=== PATIENT | female | born 1975 | race Caucasian/White ===

== ENCOUNTER 2017-02-12 18:40 | Observation (INO) | payer MEDICAID, OTHER ==
--- NOTE | 2017-02-12 19:16 | CPEKG ---
Heart Rate: 88 RR Interval: 682 P-R Interval: 220 QRSD Interval: 114 QT Interval: 420 QTC Interval: 509 P [place]: 45 QRS [place]: 91 T Wave [place]: -9 EKG Severity - ABNORMAL ECG - EKG Impression: SINUS RHYTHM EKG Impression: FIRST DEGREE AV BLOCK EKG Impression: NONSPECIFIC INTRAVENTRICULAR CONDUCTION DELAY Electronically Signed By: Cb Hernandez 12-Feb-2017 19:58:37
--- NOTE | 2017-02-12 19:41 | EDPHY ---
H & P Time Seen by Provider: 02/12/17 19:40 HPI/ROS: Chief complaint. Chest pain HPI. 41-year-old female who has been having chest pain off and on for 3 weeks. She has been using antacids with generally fairly good relief. Today however she has sharp left-sided chest pain that radiates to her left arm and notes her fingers are tingling. No radiation through to her back. Her discomfort is worse with breathing, position, exertion. She has also been vomiting the last 3 -4 days. She has been nauseated and somewhat dizzy. No fever cough. She does know she has gallstones but they have not really bothered her. Her pain is periumbilical and has been present for about 3 days. No unusual leg pain or swelling. Known factor 5 Leiden deficiency ROS Constitutional. no fever/chills, no weakness Eyes. no problems with vision ENT. no sore throat, no nasal drainage Cardiovascular. Chest pain Respiratory. no shortness of breath, no cough Abdominal. Abdominal pain with nausea and vomiting . no problems urinating MS. no calf pain/swelling, no neck/back pain, no joint pain Skin. no rash Lymph. no swollen glands Neuro. 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 ENT, Mouth: Mucous membranes are moist. Respiratory: There are no retractions, lungs are clear to auscultation. Cardiovascular: Regular rate and rhythm. Gastrointestinal: Abdomen is soft and nontender, no masses, bowel sounds normal. Neurological: Awake and alert, sensory and motor exams grossly normal. Skin: Warm and dry, no rashes. Musculoskeletal: Neck is supple nontender. Extremities symmetrical, full range of motion. Psychiatric: Patient is oriented X 3, there is no agitation. Constitutional: Initial Vital Signs Temperature (C) 36.6 C 02/12/17 18:53 Heart Rate 91 02/12/17 18:53 Respiratory Rate 18 02/12/17 18:53 Blood Pressure 121/74 H 02/12/17 18:53 O2 Sat (%) 92 08/09/17 18:53 O2 Delivery Mode Nasal Cannula O2 (L/minute) 2 Allergies/Adverse Reactions: surgical tape Allergy (Uncoded 02/12/17 18:52) Home Medications: Medication Instructions Recorded Aspirin 81mg 04/10/11 Pregabalin [Lyrica] 300 mg PO 04/10/11 Levothyroxine 02/12/17 Zoloft 50mg (*) 02/12/17 Medical Decision Making - Diagnostics EKG Interpretation: EKG interpreted by me shows normal sinus rhythm with first-degree AV block normal axis. Mild interventricular conduction delay. QRS is otherwise normal. No significant ST elevation or depression. No arrhythmia. The rate is 88 No old EKGs in our system for comparison Imaging Results: Imaging Impressions Chest/Thorax CTA 02/12/17 19:56 Impression: No evidence for pulmonary embolic disease. Normal study. Results called and discussed with MAHSA FOY, at 02/12/2017 21:14 General information for patients regarding this examination can be found at [email or web address]. If you have questions or comments about this report, please contact me at [phone] (hospital) or [phone] (cell). CT angiogram chest negative for pulmonary embolus Procedures: IV normal saline. Phenergan IV ED Course/Re-evaluation: Patient was somewhat nauseated after the Zofran. She is given IV Phenergan. Re-evaluation 9:55 p.m..--patient is stable. She and I reviewed imaging and lab results. We discussed treatment plan including recommendation for follow- up. Patient tells me that she knows something is wrong. She continues to have chest discomfort radiating to her arm. She and I agreed most cautious and conservative course is to admit her overnight to the hospital. I consulted Dr. Ferrer, hospitalist, who agrees to the admission Differential Diagnosis: I considered acute coronary syndrome, electrolyte abnormality, pulmonary embolus , pneumonia, musculoskeletal and anxiety as well - Data Points Laboratory Results: Laboratory Results 02/12/17 19:33 02/12/17 19:33 02/12/17 02/12/17 02/12/17 19:33 19:33 19:33 WBC 7.10 10^3/uL 10^3/uL (3.80-9.50) RBC 4.97 10^6/uL 10^6/uL (4.18-5.33) Hgb 14.9 g/dL g/dL (12.6-16.3) Hct 44.8 % % (38.0-47.0) MCV 90.1 fL fL (81.5-99.8) MCH 30.0 pg pg (27.9-34.1) MCHC 33.3 g/dL g/dL (32.4-36.7) RDW 13.7 % % (11.5-15.2) Plt Count 237 10^3/uL 10^3/uL (150-400) MPV 10.8 fL fL (8.7-11.7) Neut % (Auto) 47.7 % % (39.3-74.2) Lymph % (Auto) 42.5 % % (15.0-45.0) [place] % (Auto) 7.6 % % (4.5-13.0) Eos % (Auto) 1.7 % % (0.6-7.6) Baso % (Auto) 0.4 % % (0.3-1.7) Nucleat RBC Rel Count 0.0 % % (0.0-0.2) Absolute Neuts (auto) 3.38 10^3/uL 10^3/uL (1.70-6.50) Absolute Lymphs (auto) 3.02 10^3/uL H 10^3/uL (1.00-3.00) Absolute Monos (auto) 0.54 10^3/uL 10^3/uL (0.30-0.80) Absolute Eos (auto) 0.12 10^3/uL 10^3/uL (0.03-0.40) Absolute Basos (auto) 0.03 10^3/uL 10^3/uL (0.02-0.10) Absolute Nucleated RBC 0.00 10^3/uL 10^3/uL (0-0.01) Immature Gran % 0.1 % % (0.0-1.1) Immature Gran # 0.01 10^3/uL 10^3/uL (0.00-0.10) D-Dimer < 0.27 ug/mLFEU ug/mLFEU (0.00-0.50) Sodium 140 mEq/L mEq/L (134-144) Potassium 4.0 mEq/L mEq/L (3.5-5.2) Chloride 99 mEq/L mEq/L (97-110) Carbon Dioxide 28 mEq/l mEq/l (22-31) Anion Gap 13 mEq/L mEq/L (8-16) BUN 12 mg/dL mg/dL (7-23) Creatinine 0.9 mg/dL mg/dL (0.6-1.0) Estimated GFR > 60 Glucose 108 mg/dL H mg/dL (70-100) Calcium 9.4 mg/dL mg/dL (8.5-10.4) Total Bilirubin 0.5 mg/dL mg/dL (0.1-1.4) Conjugated Bilirubin 0.4 mg/dL mg/dL (0.0-0.5) Unconjugated Bilirubin 0.1 mg/dL mg/dL (0.0-1.1) AST 29 IU/L IU/L (14-46) ALT 27 IU/L IU/L (9-52) Alkaline Phosphatase 65 IU/L IU/L (38-126) Troponin I < 0.012 ng/mL ng/mL (0-0.034) Total Protein 6.6 g/dL g/dL (6.3-8.2) Albumin 4.1 g/dL g/dL (3.5-5.0) Lipase 63.0 IU/L IU/L (23-300) Medications Given: Lorazepam (Ativan Injection) 1 mg IVP Q4HRS PRN PRN Reason: Anxiety, Unable to Take PO Stop: 08/11/17 23:02 Last Admin: 02/12/17 23:37 Dose: 1 mg Discontinued Medications Sodium Chloride (Ns) 1,000 mls @ 0 mls/hr IV ONCE ONE; Wide Open PRN Reason: Protocol Stop: 02/12/17 19:57 Last Admin: 02/12/17 20:09 Dose: 1,000 mls Ondansetron HCl (Zofran) 4 mg IVP EDNOW ONE Stop: 02/12/17 19:57 Last Admin: 02/12/17 20:10 Dose: 4 mg Promethazine HCl (Phenergan) 12.5 mg IVP EDNOW ONE Stop: 08/09/17 21:15 Last Admin: 02/12/17 21:21 Dose: 12.5 mg Departure - Departure Disposition: [facility] Inpatient Acute Clinical Impression: Chest pain Qualifiers: Chest pain type: unspecified Qualified Code(s): R07.9 - Chest pain, unspecified Condition: Good
[2017-02-12] MEDS ORDERED: ONDANSETRON 4 MG/2 ML VIAL IVP ONE (19:56)
[2017-02-12] MEDS ORDERED: NS 1,000 ML IV ONE (19:56)
[2017-02-12 20:06] LABS: % IMMATURE GRANULYOCYTES 0.1 % (0.0-1.1); ABSOLUTE IMMATURE GRANULOCYTES 0.01 10^3/uL (0.00-0.10); ADD DIFF? NO; ADD MORPH? NO; ADD SCAN? NO; ATYPICAL LYMPHOCYTE FLAG 10 (0-99); FRAGMENT RBC FLAG 0 (0-99); HEMATOCRIT 44.8 % (38.0-47.0); HEMOGLOBIN 14.9 g/dL (12.6-16.3); LEFT SHIFT FLG 0 (0-99); LIPEMIA HEMOLYSIS FLAG 80 (0-99); MEAN CELL HEMOGLOBIN CONCENTR. 33.3 g/dL (32.4-36.7); MEAN CELL VOLUME 90.1 fL (81.5-99.8); MEAN PLATELET VOLUME 10.8 fL (8.7-11.7); PLATELET CLUMPS FLAG 0 (0-99); PLATELET COUNT 237 10^3/uL (150-400); RED BLOOD CELL COUNT 4.97 10^6/uL (4.18-5.33); RED CELL DISTRIBUTION WIDTH 13.7 % (11.5-15.2)
[2017-02-12 20:10] LABS: ALANINE AMINOTRANSFERASE 27 IU/L (9-52); ALBUMIN 4.1 g/dL (3.5-5.0); ALKALINE PHOSPHATASE 65 IU/L (38-126); ANION GAP 13 mEq/L (8-16); ASPARTATE AMINOTRANSFERASE 29 IU/L (14-46); BILIRUBIN,TOTAL 0.5 mg/dL (0.1-1.4); BILIRUBIN-CONJUGATED 0.4 mg/dL (0.0-0.5); BILIRUBIN-UNCONJUGATED 0.1 mg/dL (0.0-1.1); CALCIUM 9.4 mg/dL (8.5-10.4); CARBON DIOXIDE 28 mEq/l (22-31); CHLORIDE 99 mEq/L (97-110); CREATININE 0.9 mg/dL (0.6-1.0); GLOMERULAR FILTRATION RATE > 60; GLUCOSE 108 mg/dL (70-100); SODIUM 140 mEq/L (134-144); TOTAL PROTEIN 6.6 g/dL (6.3-8.2)
[2017-02-12] MEDS ORDERED: IOPAMIDOL (ISOVUE 370) 100 ML BTL IV ONE (20:12)
[2017-02-12 20:20] LABS: TROPONIN I < 0.012 ng/mL (0-0.034)
[2017-02-12] MEDS ORDERED: PROMETHAZINE HCL 25 MG/ML INJ IVP ONE (21:14)
[2017-02-12] MEDS ORDERED: ONDANSETRON DISINTEGRATING 4 MG TAB PO PRN (22:06)
[2017-02-12] MEDS ORDERED: ACETAMINOPHEN 325 MG TAB PO PRN (22:06)
[2017-02-12] MEDS ORDERED: ONDANSETRON 4 MG/2 ML VIAL IVP PRN (22:06)
[2017-02-12] MEDS ORDERED: oxyCODONE IR 5 MG TAB PO PRN (22:06)
[2017-02-12 23:04] VITALS: RESP 16
[2017-02-12] MEDS ORDERED: diphenhydrAMINE 25 MG CAP PO PRN (23:04)
[2017-02-12] MEDS: LORazepam 2 MG/ML INJ IVP PRN (23:37)
--- NOTE | 2017-02-12 23:52 | PDGENHP ---
History and Physical - Chief Complaint Chest pain - History of Present Illness 41 yo F with hx of stroke in her 20s, ?FVL, and chronic pain presents with chest pain. She relates several months of intermittent left-sided chest pain that worsened on the night prior to presentation. She describes the pain as sharp, 8/10 at its worst, involves left arm, and last several minutes before abating. She has also noted significant nausea since last night but denies SOB and diaphoresis. She could not think of anything that made the pain better, including antacids. Any movement at all makes the pain worse. During my evaluation patient was mostly complaining of significant nausea and seemed rather irritated by my evaluation. History Information - Allergies/Home Medication List Allergies/Adverse Reactions: surgical tape Allergy (Uncoded 02/12/17 18:52) Home Medications: Aspirin 81mg 04/10/11 [Last Taken Unknown] Pregabalin [Lyrica] 300 mg PO 04/10/11 [Last Taken Unknown] Levothyroxine 02/12/17 [Last Taken Unknown] Zoloft 50mg (*) 02/12/17 [Last Taken Unknown] I have personally reviewed and updated: family history, medical history - Past Medical History CVA Additional medical history: ?FVL - Family History Positive for: vascular disease, CAD - Social History Smoking Status: Former smoker (20 pack year hx) Alcohol Use: None Drug Use: None Review of Systems ROS: 10pt was reviewed & negative except for what was stated in HPI & below Physical Exam Temp Pulse Resp BP Pulse Ox 36.7 C 83 16 141/89 H 97 02/12/17 23:01 02/12/17 23:01 02/12/17 23:01 02/12/17 23:01 02/12/17 23:01 O2 (L/minute) 3 Constitutional: appears nourished, uncomfortable Eyes: PERRL, EOMI Ears, Nose, Mouth, Throat: moist mucous membranes, no oral mucosal ulcers Cardiovascular: regular rate and rhythym, systolic murmur (2/6 @ left sternal border), other (Pain somewhat reproducible on palpation) Respiratory: no respiratory distress, clear to auscultation Gastrointestinal: normoactive bowel sounds, soft, non-tender abdomen Skin: warm, no rashes or abrasions Musculoskeletal: full muscle strength, no muscle tenderness Neurologic: AAOx3, CN II-XII Intact Psychiatric: interacting appropriately, anxious Lab Data & Imaging Review 02/12/17 19:33 02/12/17 19:33 WBC 7.10 10^3/uL (3.80-9.50) 02/12/17 19:33 RBC 4.97 10^6/uL (4.18-5.33) 02/12/17 19:33 Hgb 14.9 g/dL (12.6-16.3) 02/12/17 19:33 Hct 44.8 % (38.0-47.0) 02/12/17 19:33 MCV 90.1 fL (81.5-99.8) 02/12/17 19:33 MCH 30.0 pg (27.9-34.1) 02/12/17 19:33 MCHC 33.3 g/dL (32.4-36.7) 02/12/17 19:33 RDW 13.7 % (11.5-15.2) 02/12/17 19:33 Plt Count 237 10^3/uL (150-400) 02/12/17 19:33 MPV 10.8 fL (8.7-11.7) 02/12/17 19:33 Neut % (Auto) 47.7 % (39.3-74.2) 02/12/17 19:33 Lymph % (Auto) 42.5 % (15.0-45.0) 02/12/17 19:33 [place] % (Auto) 7.6 % (4.5-13.0) 02/12/17 19:33 Eos % (Auto) 1.7 % (0.6-7.6) 02/12/17 19:33 Baso % (Auto) 0.4 % (0.3-1.7) 02/12/17 19:33 Nucleat RBC Rel Count 0.0 % (0.0-0.2) 02/12/17 19:33 Absolute Neuts (auto) 3.38 10^3/uL (1.70-6.50) 02/12/17 19:33 Absolute Lymphs (auto) 3.02 10^3/uL (1.00-3.00) H 02/12/17 19:33 Absolute Monos (auto) 0.54 10^3/uL (0.30-0.80) 02/12/17 19:33 Absolute Eos (auto) 0.12 10^3/uL (0.03-0.40) 02/12/17 19:33 Absolute Basos (auto) 0.03 10^3/uL (0.02-0.10) 02/12/17 19:33 Absolute Nucleated RBC 0.00 10^3/uL (0-0.01) 02/12/17 19:33 Immature Gran % 0.1 % (0.0-1.1) 02/12/17 19:33 Immature Gran # 0.01 10^3/uL (0.00-0.10) 02/12/17 19:33 D-Dimer < 0.27 ug/mLFEU (0.00-0.50) 02/12/17 19:33 Sodium 140 mEq/L (134-144) 02/12/17 19:33 Potassium 4.0 mEq/L (3.5-5.2) 02/12/17 19:33 Chloride 99 mEq/L (97-110) 02/12/17 19:33 Carbon Dioxide 28 mEq/l (22-31) 02/12/17 19:33 Anion Gap 13 mEq/L (8-16) 02/12/17 19:33 BUN 12 mg/dL (7-23) 02/12/17 19:33 Creatinine 0.9 mg/dL (0.6-1.0) 02/12/17 19:33 Estimated GFR > 60 02/12/17 19:33 Glucose 108 mg/dL (70-100) H 02/12/17 19:33 Calcium 9.4 mg/dL (8.5-10.4) 02/12/17 19:33 Total Bilirubin 0.5 mg/dL (0.1-1.4) 02/12/17 19:33 Conjugated Bilirubin 0.4 mg/dL (0.0-0.5) 02/12/17 19:33 Unconjugated Bilirubin 0.1 mg/dL (0.0-1.1) 02/12/17 19:33 AST 29 IU/L (14-46) 02/12/17 19:33 ALT 27 IU/L (9-52) 02/12/17 19:33 Alkaline Phosphatase 65 IU/L (38-126) 02/12/17 19:33 Troponin I < 0.012 ng/mL (0-0.034) 02/12/17 19:33 Total Protein 6.6 g/dL (6.3-8.2) 02/12/17 19:33 Albumin 4.1 g/dL (3.5-5.0) 02/12/17 19:33 Lipase 63.0 IU/L (23-300) 02/12/17 19:33 Imaging Review: CTPE without PE or other intrathoracic abnormalities. Visualized and Interpreted EKG results: Yes EKG additional interpertation: NSR, TWI in III and AVF with no prior tracing for comparison Assessment & Plan Assessment: 41 yo F w/ hx of stroke and ?FVL presenting with atypical chest pain and nausea. Plan: 1. Atypical chest pain - Present for months, very localized, and somewhat reproducible on palpation. Patient does report hx of stroke, 20 pack year smoking hx, family hx of CAD, and have TWI's inferiorly on ECG, so does have risk factors for early cardiovascular disease. Despite this, my suspicion for ACS currently is very low. CTPE performed in ED negative for PE or any other intrathoracic abnormality. Initial troponin negative; D-dimer WNL. - Continue to trend enzymes 2. Nausea - This seems to be patient's chief concern at this point. Possibly viral gastroenteritis although no diarrhea and LFTs WNL. - IVF, anti-emetics PRN - Consider PPI if not resolving 3. Hx of stroke and ?FVL - With no clear residual deficits. Patient on daily aspirin. 4. Chronic pain - Patient reports this is related to hx of stroke. Takes Lyrica daily. Diet - NPO @ MN in case she needs risk stratification Code - Full Ppx - LMWH Dispo - Admit to observation
[2017-02-13] MEDS: LORazepam 2 MG/ML INJ IVP PRN (04:07)
[2017-02-13 05:27] LABS: ADD DIFF? NO; ADD MORPH? NO; ADD SCAN? NO; ATYPICAL LYMPHOCYTE FLAG 10 (0-99); FRAGMENT RBC FLAG 0 (0-99); HEMATOCRIT 43.2 % (38.0-47.0); HEMOGLOBIN 14.2 g/dL (12.6-16.3); LEFT SHIFT FLG 0 (0-99); LIPEMIA HEMOLYSIS FLAG 80 (0-99); MEAN CELL HEMOGLOBIN 30.4 pg (27.9-34.1); MEAN CELL HEMOGLOBIN CONCENTR. 32.9 g/dL (32.4-36.7); MEAN CELL VOLUME 92.5 fL (81.5-99.8); MEAN PLATELET VOLUME 10.5 fL (8.7-11.7); PLATELET CLUMPS FLAG 10 (0-99); PLATELET COUNT 200 10^3/uL (150-400); RED BLOOD CELL COUNT 4.67 10^6/uL (4.18-5.33); RED CELL DISTRIBUTION WIDTH 14.1 % (11.5-15.2)
[2017-02-13 05:36] LABS: ANION GAP 8 mEq/L (8-16); CALCIUM 8.6 mg/dL (8.5-10.4); CARBON DIOXIDE 26 mEq/l (22-31); CHLORIDE 107 mEq/L (97-110); CREATININE 0.7 mg/dL (0.6-1.0); GLOMERULAR FILTRATION RATE > 60; GLUCOSE 79 mg/dL (70-100); POTASSIUM 4.8 mEq/L (3.5-5.2); SODIUM 141 mEq/L (134-144); SPECIMEN HEMOLYSIS 129
[2017-02-13 05:47] LABS: TROPONIN I 0.014 ng/mL (0-0.034)
--- NOTE | 2017-02-13 08:45 | HOSPPROG ---
Hospitalist Progress Note Assessment/Plan: patient is a 41-year-old female with a history of a stroke in her 20s who presented to the emergency room with chest pain. It has been intermittent on the left side. She describes it as being sharp and involved the left arm and lasts several minutes before abating. Today is my 1st encounter with the patient. Chart reviewed. * Atypical chest pain troponin x2 is negative CTA is negative for a PE D-dimer was noted to be normal patient has a history of 20 pack year smoking and family history of coronary artery disease will do a treadmill stress test this morning also patient may have some underlying GERD will start a PPI * nausea requesting Ativan will hold at this time * history of stroke and questionable factor 5 on daily aspirin * chronic pain on Lyrica * plan. Will do a treadmill stress test. Suspect the patient is very anxious and this will help alleviate her concerns. And if there are some current concerns will be addressed while she is in the hospital. Suspect she has some underlying anxiety and possible reflux. Will add a PPI. Hopefully can be discharged later today Subjective: Vita is very sleepy and wants to rest. Objective: Vital Signs Temp Pulse Resp BP Pulse Ox 36.4 C 66 16 106/71 97 02/13/17 08:00 02/13/17 08:00 02/13/17 08:00 02/13/17 08:00 02/13/17 08:00 Laboratory Results 02/13/17 05:15 02/13/17 05:15 02/12/17 02/13/17 02/14/17 05:59 05:59 05:59 Intake Total 1000 Balance 1000 - Physical Exam Constitutional: no apparent distress, appears nourished Eyes: PERRL Ears, Nose, Mouth, Throat: hearing normal Cardiovascular: regular rate and rhythym, no murmur, rub, or gallop Respiratory: no respiratory distress Skin: warm, normal color Musculoskeletal: full muscle strength Neurologic: AAOx3 Psychiatric: interacting appropriately ICD10 Worksheet Patient Problems: Problems Problem Status Onset Chest pain Acute
[2017-02-13] MEDS ORDERED: ENOXAPARIN 40 MG/0.4 ML SYR SC SCH (09:00)
[2017-02-13] MEDS ORDERED: PANTOPRAZOLE SODIUM 40 MG TAB PO SCH (09:45)
[2017-02-13] MEDS ORDERED: NS 1,000 ML IV ONE (10:00)
[2017-02-13] MEDS ORDERED: PREGABALIN 50 MG CAP PO SCH (10:15)
[2017-02-13] MEDS ORDERED: PREGABALIN 100 MG CAP PO SCH (10:30)
--- NOTE | 2017-02-13 12:22 | CPR ---
[f rep st] NONINVASIVE CARDIAC PROCEDURE REPORT DATE OF PROCEDURE: 02/13/2017 PROCEDURE: Exercise treadmill test. INDICATION: The patient is a 41-year-old female, who presented to the hospital with sharp intermittent chest pain. She does have a family history of coronary disease and prior tobacco use. She denies any history of diabetes, hypertension , or hyperlipidemia. The patient was very resistant to testing and would not elaborate on her symptoms. DESCRIPTION OF PROCEDURE: Consent was obtained. The patient was placed on continuous telemetry. Her resting EKG revealed normal sinus rhythm with a heart rate of 73 beats per minute. She has a nonischemic EKG. She complained of chest pain prior to exercise. She walked on the treadmill for 7 minutes but became hysterical while on the treadmill and it became unsafe for the patient. The exercise portion of the test was discontinued after 6 minutes and 44 seconds. She reached a maximum heart rate of 126 beats per minute. She was nowhere near her target heart rate. She remained in normal sinus rhythm with nonspecific ST-T wave changes with exercise. Her blood pressure at rest was 108 /60, and peaked at 130/70. She did have progressive chest discomfort with exercise, but would not elaborate on any of her symptoms. PLAN: This is an invalid test. The patient was unable to reach her target heart rate secondary to being upset and therefore the study was terminated. If there is a high suspicion for CAD consider a nuclear stress test. Evie Pandya NP was called with these results. /[id number]/MODL MTDD
--- NOTE | 2017-02-13 15:17 | ECHO ---
[id number] + + [address] : : [place] [address] : : [phone] + + Adult Echocardiographic Report + -------+ :Name: LAZARA WOOpreetipeyton Date: 02/13/2017 02:28 PM BP: 95/65 mmHg : : Hospital Admission Number: [id number] Johnati on: 383: :: 1975 Gender: Female Height: 59 in : :Age: 41 yrs Race: WH Weight: 99 lb : :Reason For Study: chest pain : : BSA: 1.4 meter s2 : :History: chest pain : + -------+ MMode/2D Measurements \T\ Calculations IVSd: 0.73 cm RVDd: 2.3 cm FS: 44.1 % Ao root diam: LVPWd: 1.1 cm LVIDd: 4.2 cm EDV(Teich): 78.0 ml2.4 cm LVIDs: 2.3 cm ESV(Teich): 19.0 ml EF(Teich): 75.7 % LVOT diam: 1.9 cm LVLd ap4: 7.2 cm SV(MOD-sp4): LVOT area: EDV(MOD-sp4): 42.0 ml 3.0 cm2 69.0 ml LVLs ap4: 6.3 cm ESV(MOD-sp4): 27.0 ml EF(MOD-sp4): 60.9 % Normal Measurement Values: + + :LVIDd (3.5-5.7cm) IVSd (0.6-1.1cm) LVPWd (0.6-1.1cm) Aortic Root (2.0-3.7cm)Left Atrium (1.5-4.0cm): :LV Vol(d) (76-115ml) LV Vol(s) (29-48ml) Ejec Fraction (50-65%)PV Juan (0.6- 1.2m/s) TV Juan (0.4-1.0m/s) : :MV E Juan (0.8-1.0m/s)MV A Juan (0.3-1.0m/s)LVOT Juan (0.7-1.2m/s) Asc Ao Juan ( 0.9-1.8m/s) : + + Doppler Measurements \T\ Calculations MV E max juan: Ao V2 max: AI max juan: LV V1 max: 63.2 cm/sec 119.9 cm/sec 408.5 cm/sec 85.9 cm/sec MV A max juan: Ao max PG: AI max P.8 mmHg LV V1 max P.3 cm/sec 5.7 mmHg AI dec slope: 3.0 mmHg MV E/A: 1.2 MOMO(V,D): 2.1 cm2 146.2 cm/sec2 MV dec time: AI P1/2t: 818.2 msec 0.17 sec PA V2 max: 60.8 cm/sec PA max P.5 mmHg Left Ventricle The left ventricle is normal in size and function. There is normal left ventricular wall thickness. Ejection Fraction = 60%. The left ventricular ejection fraction is calculated at 75.7 %. No regional wall motion abnormalities noted. Right Ventricle The right ventricle is normal in size and function. Atria The left atrial size is normal. Right atrial size is normal. Mitral Valve The mitral valve leaflets appear thickened, but open well. There is trace mitral regurgitation. Tricuspid Valve The tricuspid valve is normal in structure and function. There is trace tricuspid regurgitation. Aortic Valve The aortic valve is trileaflet. There is no aortic stenosis. Mild to moderate aortic regurgitation. Pulmonic Valve The pulmonic valve is not well visualized. Great Vessels The aortic root is normal size. Pericardium/Pleural There is no pericardial effusion. Conclusion A two-dimensional transthoracic echocardiogram with M-mode and Doppler was performed. (1) Left ventricular systolic ejection fraction was normal (60%) - normal wall motion (2) No left ventricular hypertrophy (3) Diastolic function was not clear assessed in this study (4) Normal right ventricular size and function (5) Normal atrial dimensions (6) Physiologic mitral regurgitation (7) Trileaflet aortic valve with mild to moderate insufficiency. No scerlsosis or stenosis (8) Physiologic tricuspid regurgitation (9) Poor visualization of the pulmonic valve (10) No comparison echocardiograms Final Reading Physician: Jose Luis Izaguirre signed on 02/13/2017 03:17 PM Ordering Physician: Evie Pandya Performed By: Krista Fox
[2017-02-13 15:26] VITALS: BP 111/73; PULSE 71; TEMP 98.7; O2SAT 91
--- NOTE | 2017-02-13 16:24 | GDS ---
[f rep st] DISCHARGE SUMMARY DISCHARGE DIAGNOSES: 1. Atypical chest pain. 2. Nausea. 3. History of stroke and Factor V. 4. Chronic pain, on Lyrica. HISTORY: Briefly, the patient is a 41-year-old female with a history of a stroke in her 20s, who presented to the emergency room with chest pain. It had been intermittent on the left side, and has been going on for the last week. Nothing seems to relieve it. Also of note, she was complaining of ongoing nausea. HOSPITAL COURSE: 1. Atypical chest pain. Troponin was checked x2, which have been negative. D- dimer was negative. A CTA was performed, which was negative for PE. She did not tolerate the treadmill stress test, and became tearful during this procedure. Subsequently, she was very concerned because she has been told she has a murmur. An echocardiogram was performed. This showed that her left ventricular systolic ejection fraction was normal at 60%. She has no LVH. She has trileaflet aortic valve with mild to moderate insufficiency, no sclerosis or stenosis. She has physiologic tricuspid regurgitation. Will have her follow up with Cardiology and make an appointment to get further stress testing in the outpatient setting. In addition, I am recommending that she see Cardiology in 6 months due to her aortic insufficiency. 2. Nausea. She received 1 dose of Ativan last night, which did resolve her symptoms. I explained to her that benzodiazepines are not the best drug to treat nausea. Liver enzymes are normal. She is being checked for H pylori, and started her on a PPI. She is able to eat and drink without difficulty. On discharge,she shared she has gallstones. She has no pain in her abdomen and is eating well. Recommending an outpatient ultrasound. 3. History of stroke and Factor V. She is on daily aspirin. The stroke occurred in her 20s, when she was on control. 4. Chronic pain. Lyrica has been resumed. CONDITION AT DISCHARGE: Stable. Blood pressure is 111/73, heart rate is 71, respiratory rate is 16, O2 saturation on room air 92%, temperature is 37.1 Celsius. MEDICATIONS AT DISCHARGE: Please see the EMR. DISCHARGE INSTRUCTIONS: 1. I have given her 2 providers for followup care. She does not have a primary care doctor. She needs to see Cardiology and a PCP. 2. She has aortic insufficiency. Follow up in 6 months. 3. To make an appointment with Cardiology to get a stress test, to call tomorrow. 4. If she develops fever, chills, or worsening shortness of breath, return to the ER. /[id number]/MODL MTDD
[2017-02-13] MEDS ORDERED: FERROUS SULFATE 325 MG TAB PO SCH (21:00)
[2017-02-13] MEDS ORDERED: SERTRALINE HCL 100 MG TAB PO SCH (21:00)
[2017-02-14] MEDS ORDERED: LEVOTHYROXINE 125 MCG TAB PO SCH (04:00)
[2017-02-14] MEDS ORDERED: PREGABALIN 100 MG CAP PO SCH (09:00)
[2017-02-14] MEDS ORDERED: ASPIRIN 81 MG CHEWABLE TAB PO SCH (09:00)
[2017-02-14] MEDS ORDERED: Herbals/Supplements -Info Only PO SCH (09:00)
[2017-02-14] MEDS ORDERED: NON-FORMULARY NEW DRUG (Pregabalin [Lyrica] 200 MG) PO SCH (09:00)
== END 2017-02-13 17:31 | disposition home or self-care (01) ==
LOC: F3E 22:45
PROVIDERS: ADMIT Student in an Organized Health Care Education/Training Program; ATTEND Internal Medicine
PROC: 3E0337Z Introduction of Electrolytic and Water Balance Substance into Peripheral Vein, Percutaneous Approach (ICD-10-PCS; principal; 2017-02-12)
DX: R07.9 Chest pain, unspecified (principal); R11.0 Nausea; I35.1 Nonrheumatic aortic (valve) insufficiency; E86.9 Volume depletion, unspecified; D68.51 Activated protein C resistance; G89.29 Other chronic pain; Z79.82 Long term (current) use of aspirin; Z87.891 Personal history of nicotine dependence; Z86.73 Personal history of transient ischemic attack (TIA), and cerebral infarction without residual deficits; Z82.49 Family history of ischemic heart disease and other diseases of the circulatory system
CPT/HCPCS: 71275; 93005; 93017; 93306; 96361; 96374; 96375; 99285; G0378; J2060; J2405; J2550; Q9967